=== PATIENT | female | born 1950 | race Caucasian/White ===

== ENCOUNTER 2016-08-04 05:15 | Inpatient (IN) | payer OTHER ==
[~2016-08-04] VITALS: Ht 162.6 cm; Wt 75.7 kg
--- NOTE | ~2016-08-04 | HC ---
[facility] [place] [address] CONSULTATION Name: YOLANDA ZAIDI Room #: 410-[facility]#: [id number] Admission: 08/04/16 Attend Phys: Calvin Lund MD Discharge: Date of : 48 Report #: [id number] THIS REPORT FOR: //name// CC: Calvin Robertohanie Frank DATE OF SERVICE: 08/04/2016 ATTENDING PHYSICIAN: Dr. Lund. CONSULTING PHYSICIAN: Adrian Magallanes MD REASON FOR CONSULTATION: Abdominal pain, nausea, and vomiting. HISTORY OF PRESENT ILLNESS: This is a 66-year-old female patient who was seen in the [facility] after having awakened at around 2 o'clock this morning with abdominal pain, nausea, and vomiting. Shortly after awakening, she passed a regular bowel movement with no change in her symptoms. She notes no temporal relationship to food intake. She denies fever or chills. She has had similar pain in the past intermittently, most recently 9 months ago, although the pain was not as intense. She was to be seen by director retirement; however, she got feeling better and elected not to keep the appointment. The patient's CT scan through the emergency room for this hospitalization has revealed thickening of the hepatic flexure of the colon with gallbladder wall thickening and pericholecystic fluid visualized. Ultrasound was consistent with this as well. The patient had a negative sonographic Drake's sign. Her white count was slightly elevated. PAST MEDICAL HISTORY: Significant for asthma, hypertension, gastroesophageal reflux and seasonal allergies. PAST SURGICAL HISTORY: Includes hysterectomy 18 years ago and nasal polypectomy in the past. HOME MEDICATIONS: Include Advair, lisinopril 20 mg, Zyrtec, and a proton pump inhibitor. ALLERGIES: No known drug allergies. FAMILY HISTORY: Her father had diabetes mellitus. SOCIAL HISTORY: The patient denies any use of tobacco or illicit drugs. She reports she drinks beer weekly. 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 REVIEW OF SYSTEMS: As per history of present illness. In addition, [facility] [address] [place] [address] CONSULTATION Name: DYANYOLANDA K Room #: 410-[facility]#: [id number] Admission: 08/04/16 Attend Phys: Calvin Ludn MD Discharge: Date of : 48 Report #: [id number] GENERAL: The patient denies fever or chills. Denies unintentional weight loss. HEENT: Denies changes in taste, vision, hearing, or smell. RESPIRATORY: Denies shortness of breath, COPD or asthma. CARDIOVASCULAR: Denies chest pain or palpitations. GASTROINTESTINAL: As per history of present illness. Denies bright red blood per rectum. Her most recent colonoscopy was approximately 5-6 years ago for polyps. GENITOURINARY: Denies dysuria, urgency, increased urinary frequency or hematuria. MUSCULOSKELETAL: Denies myalgia, arthralgia or arthritis. NEUROLOGIC: Denies headaches, numbness or tingling. PSYCHIATRIC: Denies depression, anxiety or suicidal ideations. SKIN AND INTEGUMENTARY: Denies new skin lesions, rashes, moles or jaundice. HEMATOLOGIC: Denies easy bleeding, bruising or anemia. All other review of systems is negative. PHYSICAL EXAMINATION: VITAL SIGNS: Temperature 98.7, blood pressure 143/71, pulse 95 and respirations 20. GENERAL: This is a 66-year-old female patient in no acute distress. HEENT: Atraumatic, normocephalic with moist mucosal membranes. Oropharynx is clear. She has no scleral icterus. NECK: Supple, no appreciable lymphadenopathy. Trachea is midline. CHEST: Clear bilaterally. No crackles or wheezes. CARDIOVASCULAR: Regular rate and rhythm, S1, S2. ABDOMEN: Soft, but tender to palpation, greatest in the upper epigastrium. She has no rebound or guarding. No palpable masses, no appreciable hernias. No hepatosplenomegaly. GENITOURINARY: Normal external female genitalia. EXTREMITIES: No clubbing, cyanosis or edema. NEUROLOGIC: Cranial nerves 2-12 grossly intact. PSYCHIATRIC: Normal mood and affect. SKIN AND INTEGUMENTARY: No acute inflammatory changes, rashes or lesions are present, no jaundice. LABORATORY DATA: CBC shows a white blood cell count of 12.5, hemoglobin 13.9, hematocrit 42.3 and platelets 343. Electrolytes showed sodium of 141, potassium 4.0, chloride 105, CO2 of 29, BUN 17, creatinine 1.0 and glucose 134. Her liver function tests were mildly elevated with an AST of 44, normal ALT at 58 and elevated alkaline phosphatase of 175. Total bilirubin was normal at 0.5. Lipase was normal at 120. Urinalysis was entirely negative. RADIOLOGIC STUDIES: Abdominal ultrasound showed a prominent gallbladder; however, no gallstones were seen and the patient had a negative sonographic Drake sign. CT of the abdomen and pelvis findings are as noted above. There [address] [address] CONSULTATION Name: YOLANDA ZAIDI Room #: 410-P [facility]#: [id number] Admission: 08/04/16 Attend Phys: Calvin Lund MD Discharge: Date of : 48 Report #: [id number] was mild edema of the proximal splenic flexure of the colon. CT findings are as noted above. The gallbladder wall showed a slight amount of fluid anterior to the gallbladder. The gallbladder itself was seen adjacent to the hepatic flexure where there was a suggestion of mild edema involving the proximal splenic flexure. This was felt to represent mild developing diverticulitis versus colitis adjacent to the gallbladder resulting in secondary inflammatory changes. IMPRESSION AND PLAN: This is a 66-year-old female patient with a history of hypertension, asthma, and gastroesophageal reflux who has upper epigastric abdominal pain occurring intermittently. The differential diagnosis includes peptic ulcer disease, biliary disease, or colitis/diverticulitis, all of these could be present; however, my suspicion is that she has diverticulitis with secondary inflammation of the gallbladder. That being said, she could also have chronic cholecystitis with similar symptoms approximately 9 months ago. Her leukocytosis may be secondary to the nausea and vomiting that she has experienced. My recommendation is that she taken minimal p.o. until her bowel function is more robust. She should continue on IV fluids, antibiotics, and her diet can be advanced when able. At some point, she will need a followup CT scan and she would benefit from a PIPIDA scan, which could help to both rule out acute cholecystitis and to determine her gallbladder function/EF. We discussed the pathophysiology and natural history of both diverticular disease and biliary disease as well as treatment alternatives and surgical options. The patient expressed understanding of our discussion. Further recommendations will be made pending her clinical course. I will follow along with serial abdominal exams as well as labs and x-rays as necessary. I sincerely appreciate the opportunity to participate in the care of this patient and will leave further recommendations and orders in the electronic medical record as appropriate. <ELECTRONICALLY SIGNED> By: Adrian Magallanes MD, FACS 08/05/16 0843 2041 [id number] Adrian Magallanes MD, FACS /nt
--- NOTE | ~2016-08-04 | EKG ---
[address] [address] ELECTROCARDIOGRAM REPORT Name: YOLANDA ZAIDI Room #: 410-[facility]#: [id number] Admission: 08/04/16 Attend Phys: Calvin Lund MD Discharge: Date of : 48 Report #: [id number] THIS REPORT FOR: //name// [facility] ED Test Date: 2016-08-04 Test Time: 08:15:22 Pat Name: YOLANDA ZAIDI Department: Room: [employer] Gender: F Nurse General Duty: BITA : 1950 Requested By: Eliseo Mayen Order Number: [id number] MD: Bart Muller Measurements Intervals [place] Rate: 59 P: 59 MD: 167 QRS: 9 QRSD: 98 T: 32 QT: 442 QTc: 438 Interpretive Statements Sinus rhythm No previous ECG available for comparison Electronically Signed On 08-04-2016 22:40:49 CDT by Bart Muller [email or web address] <ELECTRONICALLY SIGNED> By: Bart Muller MD 08/04/16 2240 0815 4 Bart Muller MD /WYATT
[2016-08-04 05:16] VITALS: BP 148/90
[2016-08-04 05:35] LABS: URINE BILIRUBIN NEGATIVE (Negative); URINE BLOOD NEGATIVE (Negative); URINE COLOR YELLOW; URINE GLUCOSE-RANDOM* NEGATIVE (Negative); URINE KETONES NEGATIVE (Negative); URINE NITRITE NEGATIVE (Negative); URINE PROTEIN (DIPSTICK) NEGATIVE (Negative); URINE SPECIFIC GRAVITY 1.015 (1.003-1.035); URINE UROBILINOGEN 0.2 E.U./dl (0.2-1.0)
[2016-08-04 05:51] LABS: ABSOLUTE NEUTROPHILS 9.1 thou/uL (1.4-8.2); BASOPHILS 0.5 % (0.0-2.0); EOSINOPHILS 1.5 % (0.0-3.0); HEMATOCRIT 42.3 % (37.0-47.0); HEMOGLOBIN 13.9 gm/dL (12.0-15.0); MANUAL DIFF NO; MCH 29.4 pg (26.0-34.0); MCV 89.2 fL (80.0-100.0); MONOCYTES 8.7 % (1.0-8.0); PLATELET COUNT 343 thou/uL (150-400); POLYS 72.3 % (36.0-66.0); RBC 4.74 mil/uL (4.20-5.00); RDW 13.6 % (10.5-14.5); WBC 12.5 thou/uL (4.0-11.0)
[2016-08-04 05:59] LABS: CALCIUM 8.9 mg/dL (8.5-10.1)
[2016-08-04 06:04] LABS: DIRECT BILIRUBIN 0.1 mg/dL (<0.1-0.3); TOTAL BILIRUBIN 0.5 mg/dL (<0.1-1.0); TOTAL PROTEIN 7.6 g/dL (6.4-8.2)
[2016-08-04] MEDS ORDERED: ALLERCLEAR10 MG PO (07:05)
[2016-08-04] MEDS ORDERED: PRINIVIL20 MG PO (07:05)
[2016-08-04] MEDS ORDERED: ASPIR 8181 MG PO (07:06)
[2016-08-04] MEDS ORDERED: PROBIOTIC1 EAC1 PO (07:06)
[2016-08-04] MEDS ORDERED: OMEPRAZOLE 20 M20 MG PO (07:06)
[2016-08-04] MEDS ORDERED: BIOTIN1 MG PO (07:06)
[2016-08-04] MEDS ORDERED: NASACORT10.8 ML NS (07:07)
[2016-08-04] MEDS ORDERED: ADVAIR HFA 230M12 GM INH (07:07)
[2016-08-04 09:00] VITALS: BP 140/79
[2016-08-04 11:00] VITALS: BP 124/77
[2016-08-04 16:46] VITALS: BP 143/71
[2016-08-04 20:00] VITALS: BP 136/93
[2016-08-05 06:23] LABS: HEMATOCRIT 38.8 % (37.0-47.0); HEMOGLOBIN 13.1 gm/dL (12.0-15.0); MCH 30.3 pg (26.0-34.0); MCHC 33.9 g/dL (28.0-37.0); MCV 89.3 fL (80.0-100.0); RBC 4.34 mil/uL (4.20-5.00); RDW 13.6 % (10.5-14.5); WBC 10.5 thou/uL (4.0-11.0)
[2016-08-05 06:47] LABS: ALBUMIN 3.1 g/dL (3.4-5.0); CALCIUM 8.5 mg/dL (8.5-10.1); POTASSIUM 3.3 mmol/L (3.5-5.1); TOTAL PROTEIN 6.2 g/dL (6.4-8.2)
[2016-08-05 07:31] VITALS: BP 138/73
[2016-08-05 16:07] VITALS: BP 134/68
[2016-08-05 19:35] VITALS: BP 135/70
[2016-08-06 04:44] VITALS: BP 99/63
[2016-08-06 16:00] VITALS: BP 144/80
[2016-08-06 19:50] VITALS: BP 148/76
[2016-08-07 03:26] VITALS: BP 110/51
[2016-08-07 08:00] VITALS: BP 144/84
[2016-08-07 12:46] LABS: HEMATOCRIT 38.5 % (37.0-47.0); HEMOGLOBIN 12.9 gm/dL (12.0-15.0); MCHC 33.5 g/dL (28.0-37.0); MCV 89.4 fL (80.0-100.0); RBC 4.3 mil/uL (4.20-5.00); RDW 13.4 % (10.5-14.5); WBC 8.4 thou/uL (4.0-11.0)
[2016-08-07 12:54] LABS: CALCIUM 8.8 mg/dL (8.5-10.1); CREATININE 0.9 mg/dL (0.6-1.0); POTASSIUM 3.4 mmol/L (3.5-5.1)
[2016-08-07] MEDS ORDERED: AUGMENTIN 875-1 EACH PO (15:50)
[2016-08-07 15:59] VITALS: BP 144/84
== END 2016-08-07 17:04 | disposition home or self-care (01) | DRG 872 ==
LOC: ER 05:15 → 4N 08:17 → EROBS 08:17 → 5S 08:46 → 4N 17:32
PROVIDERS: Emergency Medicine; Internal Medicine; Nurse Practitioner Family
DX: A41.9 Sepsis, unspecified organism (principal); K57.92 Diverticulitis of intestine, part unspecified, without perforation or abscess without bleeding; J45.909 Unspecified asthma, uncomplicated; I10 Essential (primary) hypertension; K21.9 Gastro-esophageal reflux disease without esophagitis; D72.829 Elevated white blood cell count, unspecified; E87.6 Hypokalemia; Z79.899 Other long term (current) drug therapy; Z79.82 Long term (current) use of aspirin; Z83.3 Family history of diabetes mellitus; Z90.710 Acquired absence of both cervix and uterus
CPT/HCPCS: 10091

== ENCOUNTER 2016-09-11 05:53 | Day surgery (SDC) | payer OTHER ==
[~2016-09-11] VITALS: Ht 162.6 cm; Wt 72.6 kg
--- NOTE | ~2016-09-11 | EKG ---
[address] [place] [address] ELECTROCARDIOGRAM REPORT Name: YOLANDA ZAIDI Room #: [facility]#: [id number] Admission: 09/11/16 Attend Phys: Adrian Magallanes MD, F Discharge: 09/11/16 Date of : 48 Report #: [id number] THIS REPORT FOR: //name// [facility] Test Date: 2016-09-11 Test Time: 09:41:57 Pat Name: YOLANDA ZAIDI Department: Room: 150 5 Gender: F Slotter Operator: VINNIE : 1950 Requested By: Adrian Magallanes Order Number: [id number] MD: Alfonso Gillespie Measurements Intervals [place] Rate: 88 P: 66 CO: 155 QRS: 10 QRSD: 92 T: 33 QT: 377 QTc: 457 Interpretive Statements Sinus rhythm No significant abnormality Compared to ECG 08/04/2016 08:15:22 No significant changes Electronically Signed On 09-13-2016 8:05:14 CDT by Alfonso Gillespie [email or web address] <ELECTRONICALLY SIGNED> By: Alfonso Gillespie MD, [facility] 09/13/16 0805 0 Alfonso Gillespie MD, [facility] /EPI
--- NOTE | ~2016-09-11 | O ---
[facility] [place] [address] OPERATIVE REPORT Name: YOLANDA ZAIDI Room #: [facility]#: [id number] Admission: 09/11/16 Attend Phys: Adrian Magallanes MD, F Discharge: 09/11/16 Date of : 48 Report #: [id number] THIS REPORT FOR: //name// CC: Leonela Magallanes DATE OF SERVICE: 09/11/2016 SURGEON: Adrian Magallanes MD INFORMATION TECHNOLOGY CONSULTANT: None. PREOPERATIVE DIAGNOSES: 1. History of acute acalculous cholecystitis. 2. Biliary colic with dyskinesia. POSTOPERATIVE DIAGNOSES: 1. History of acute acalculous cholecystitis, now subacute. 2. Biliary colic with dyskinesia. PROCEDURE: Robotic cholecystectomy. ANESTHESIA: General endotracheal anesthesia and local anesthetic. ESTIMATED BLOOD LOSS: 2 mL. SPECIMEN: Gallbladder. COMPLICATIONS: None appreciated. INDICATIONS FOR PROCEDURE: This is a 66-year-old female patient who was seen in the [facility] emergency room with abdominal pain, nausea, and vomiting in early July 2016. She underwent a CT of the abdomen and pelvis, which revealed thickening of the gallbladder wall and pericholecystic fluid as well as thickening of the hepatic flexure of the colon. The patient's white blood cell count was slightly elevated. She improved with antibiotic therapy. She ultimately underwent a PIPIDA scan, which revealed a 0% gallbladder ejection fraction with no evidence for acute cholecystitis. The patient has had recurrent symptoms most recently 9 months prior to her hospitalization. She elected not to see a senior internet sales consultant as she was feeling better. She denies current postprandial pain, nausea, vomiting, fever, or chills. She presents today for robotic cholecystectomy. OPERATIVE FINDINGS: Upon entrance into the abdominal cavity, the liver, stomach, small-bowel and colon in the surrounding area appeared otherwise normal. The critical view consisting of the cystic artery, cystic duct and [address] [address] OPERATIVE REPORT Name: YOLANDA ZAIDI Room #: DEP [facility]#: [id number] Admission: 09/11/16 Attend Phys: Adrian Magallanes MD, F Discharge: 09/11/16 Date of : 48 Report #: [id number] lower edge of the gallbladder forming a window through, which the liver was visible, was seen prior to clipping both the cystic artery and cystic duct. There were subacute cholecystitis changes as there was fluid in the pericholecystic tissue. No other significant intraabdominal pathology was identified. At the conclusion of the operation, the sponge, needle, and instrument counts were correct. There was no evidence for iatrogenic injury. DESCRIPTION OF PROCEDURE IN DETAIL: After the benefits and risks of the procedure were explained to the patient, which include, but are not limited to risks of bleeding, infection, postoperative pain, and postoperative expectations, informed consent was obtained. The patient was identified in the preoperative holding area. She was given IV antibiotics as documented in the chart in line with the SCIP protocol. The patient was then taken to the operating room and she was placed in the supine position. SCDs were placed on the patient's bilateral lower extremities and pneumatic compression was initiated. The patient was then given IV sedation and she was intubated without incident. The patient's abdomen was then prepped and draped in the standard sterile fashion. A time-out was performed to identify the correct patient and procedure. Local anesthetic was infiltrated into the skin and subcutaneous tissue in the left abdomen where a small transverse incision was made. A 5-mm Visiport was placed intraperitoneally with a 0-degree angled laparoscope. Pneumoperitoneum was achieved with insufflation of carbon dioxide to 15 mmHg. An infraumbilical 12-mm as well as 8-mm ports times 2 in the right lower quadrant were placed under direct visualization after local anesthetic was infiltrated into the skin and subcutaneous tissue and appropriately sized incisions were made. The patient was then placed in the reverse Trendelenburg position. The da Ken robot was then docked to the ports. After appropriately docking of the ports and placing the instruments, I broke scrub to perform the operation on the robotic console. The gallbladder was retracted in the cephalad and lateral direction. The gallbladder peritoneum was scored medially and laterally with the hook cautery. The cystic artery and cystic duct were dissected free and seen as the only two structures entering the gallbladder. The critical view of safety was identified, whereby the cystic artery, cystic duct and lower edge of the gallbladder forming a window through which the liver was visible. The cystic duct was triply clipped and divided sharply, leaving 2 clips on the cystic duct stump; the cystic artery was doubly clipped and divided with the cautery, leaving 2 clips on the cystic artery stump. The gallbladder was then dissected out of the liver bed with the hook cautery. Bleeding points were made hemostatic with electrocautery at the time of removal of the gallbladder. The gallbladder was placed in the right pericolic gutter. The robotic instruments were then removed under direct visualization. The camera was removed and the robot was undocked from the laparoscopic ports. [address] [address] OPERATIVE REPORT Name: YOLANDA ZAIDI Room #: DEP [facility]#: [id number] Admission: 09/11/16 Attend Phys: Adrian Magallanes MD, F Discharge: 09/11/16 Date of : 48 Report #: [id number] The abdominal cavity was then entered with a 5-mm 30-degree angled laparoscope through the right mid abdominal port. The gallbladder was placed in an Endopouch and removed through the 12 mm port site. A cehuni-rl-ltanh 0 PDS suture was then used to close the fascial defect under direct visualization. The liver bed was examined for hemostasis prior to tying the suture. The suture was tied under direct visualization to ensure no incorporation of intraabdominal content. The abdominal cavity was then desufflated and the remaining ports were removed. Interrupted subcuticular 4-0 Monocryl sutures and Dermabond were used to close the skin incisions. The patient tolerated the procedure well. She was awakened, extubated, and taken to recovery room in stable condition with no apparent intraoperative complications. <ELECTRONICALLY SIGNED> By: Adrian Magallanes MD, FACS 09/12/16 0704 1444 1603 Adrian Magallanes MD, FACS /nt
--- NOTE | ~2016-09-11 | S ---
[facility] [place] [address] SURGICAL PATH RPT PROCEDURE Name: KAY ZAIDI Room #: DEP [facility]..#: [id number] Admission: 09/11/16 Date of : 48 Discharge: 09/11/16 Report #: [id number] Path Case #: [id number] PATHOLOGY REPORT COLLECTION DATE: 09/11/2016 RECEIVED DATE: 09/11/2016 SUBMITTING PHYS: Dr. Adrian Magallanes OTHER PHYS: Dr. Leonela Frank SPECIMEN(S) RECEIVED: A.Gallbladder * * * * * * * * * * * * FINAL DIAGNOSIS: Gallbladder, cholecystectomy: - Mild chronic cholecystitis. - Cholesterolosis. PATHOLOGIST: Ellen Matos M.D. REPORT ELECTRONICALLY SIGNED BY: Ellen Matos M.D. DATE/TIME: 09/13/2016 15:32 * * * * * * * * * * * * GROSS PATHOLOGY: Received in formalin labeled "Kay Zaidi gallbladder," is a 6.7 x 2.9 x 1.0 cm, previously opened gallbladder with blue-thomas serosal surfaces. Opening the gallbladder reveals a velvety, bile-stained mucosa with mild, diffuse cholesterolosis, and an average wall thickness of 0.1 cm. Calculi are not present and no masses are noted grossly. Personalized Living Manager sections from the body and fundus are submitted along with the proximal margin in cassette A1. (CAA; 09/12/2016) CLINICAL HISTORY: Cholecystitis INITIAL CPT CODE(S): A; 57864 Professional services performed by [facility] at [facility] [address] [place] [address] Technical services performed by [facility] at [address] [place] [id number]. [facility] [address] [place] [address] SURGICAL PATH RPT PROCEDURE Name: KAY ZAIDI Room #: [place] [facility] [place]#: [id number] Admission: 09/11/16 Date of : 48 Discharge: 09/11/16 Report #: [id number] Path Case #: [id number] [facility] [address] [address] PHONE: [phone] DIRECTOR: Gama Caballero M.D. * * * END OF REPORT * * *
[~2016-09-11 05:53] MED LIST: ACYCLOVIR 200200 MG PO; ADVAIR HFA 230M12 GM INH; ALLERCLEAR10 MG PO; ASPIR 8181 MG PO; AUGMENTIN 875-1 EACH PO; BIOTIN1 MG PO; HAIR, SKIN AND1 EACH PO; NASACORT10.8 ML NS; OMEPRAZOLE 20 M20 MG PO; PRINIVIL20 MG PO; PROBIOTIC1 EAC1 PO
[2016-09-11 09:52] LABS: HEMATOCRIT 41.2 % (37.0-47.0); HEMOGLOBIN 13.9 gm/dL (12.0-15.0); MCH 30.6 pg (26.0-34.0); MCHC 33.8 g/dL (28.0-37.0); MCV 90.6 fL (80.0-100.0); RBC 4.55 mil/uL (4.20-5.00); RDW 13.4 % (10.5-14.5); WBC 8.1 thou/uL (4.0-11.0)
[2016-09-11 10:07] LABS: CALCIUM 9.4 mg/dL (8.5-10.1); CREATININE 0.9 mg/dL (0.6-1.0); POTASSIUM 3.7 mmol/L (3.5-5.1)
[2016-09-11 10:10] LABS: ALBUMIN 3.9 g/dL (3.4-5.0); TOTAL BILIRUBIN 0.6 mg/dL (<0.1-1.0); TOTAL PROTEIN 7.3 g/dL (6.4-8.2)
[2016-09-11 10:23] VITALS: BP 142/76
[2016-09-11 13:03] VITALS: BP 142/76
== END 2016-09-11 13:50 | disposition home or self-care (01) ==
LOC: TBA 05:53 → OR 05:53
PROVIDERS: Surgery
DX: K80.42 Calculus of bile duct with acute cholecystitis without obstruction (principal); K82.8 Other specified diseases of gallbladder; I10 Essential (primary) hypertension; K21.9 Gastro-esophageal reflux disease without esophagitis; J45.909 Unspecified asthma, uncomplicated; Z90.710 Acquired absence of both cervix and uterus; Z98.890 Other specified postprocedural states; Z79.82 Long term (current) use of aspirin; Z79.899 Other long term (current) drug therapy
CPT/HCPCS: 49000; 50010; 50101; 50249; 50411; 50555; 51975; 52265; 54022; 54118; 56525; 56526; 56632; 56641; 57006; 62110; 62900; 70005

== ENCOUNTER 2019-10-25 16:40 | Emergency (ER) | payer OTHER ==
[~2019-10-25] VITALS: Ht 162.6 cm; Wt 77.1 kg
[2019-10-25 16:53] LABS: URINE BILIRUBIN NEGATIVE (Negative); URINE BLOOD 1+ (Negative); URINE CLARITY CLEAR; URINE COLOR YELLOW; URINE GLUCOSE-RANDOM* NEGATIVE (Negative); URINE KETONES TRACE (Negative); URINE LEUKOCYTES-REFLEX NEGATIVE (Negative); URINE NITRITE-REFLEX NEGATIVE (Negative); URINE PROTEIN (DIPSTICK) 1+ (Negative); URINE SPECIFIC GRAVITY 1.025 (1.005-1.035); URINE UROBILINOGEN 0.2 E.U./dl (0.2-1.0)
[2019-10-25 17:05] LABS: BACTERIA-REFLEX 1-9 Few /HPF (None Seen); CASTS None Seen /LPF (None Seen); CRYSTALS None Seen /LPF (None Seen); SQUAMOUS 0-3 Few /LPF (0-3); URINE RBC 3-10 Few /HPF (0-2); URINE WBC-REFLEX None Seen /HPF (0-5)
[2019-10-25 17:39] LABS: ABSOLUTE NEUTROPHILS 13.9 thou/uL (1.4-8.2); BASOPHILS 0.3 % (0.0-2.0); EOSINOPHILS 0.1 % (0.0-3.0); HEMATOCRIT 42.8 % (37.0-47.0); HEMOGLOBIN 14.7 gm/dL (12.0-15.0); LYMPHOCYTES 8.5 % (24.0-44.0); MCH 31.2 pg (26.0-34.0); MCHC 34.4 g/dL (28.0-37.0); MCV 90.7 fL (80.0-100.0); MONOCYTES 7.8 % (1.0-8.0); PLATELET COUNT 319 thou/uL (150-400); POLYS 83.3 % (36.0-66.0); RBC 4.72 mil/uL (4.20-5.00); RDW 13.7 % (10.5-14.5); WBC 16.8 thou/uL (4.0-11.0)
[2019-10-25 17:49] LABS: CALCIUM 9.1 mg/dL (8.5-10.1); POTASSIUM 3.7 mmol/L (3.5-5.1)
[2019-10-25 17:55] LABS: ALBUMIN 3.9 g/dL (3.4-5.0); TOTAL BILIRUBIN 0.7 mg/dL (0.2-1.0); TOTAL PROTEIN 7.4 g/dL (6.4-8.2)
[2019-10-25] MEDS ORDERED: CIPRO500 M1 PO (19:06)
[2019-10-25] MEDS ORDERED: NORCO 5-325 TA1 EAC2 PO (19:06)
[2019-10-25] MEDS ORDERED: ONDANSETRON HCL4 M2 PO (19:06)
[2019-10-25] MEDS ORDERED: FLAGYL500 M1 PO (19:06)
[2019-10-25 19:50] VITALS: BP 180/78
== END 2019-10-25 19:55 | disposition home or self-care (01) ==
LOC: ER 16:40
PROVIDERS: Physician Assistant
DX: K57.32 Diverticulitis of large intestine without perforation or abscess without bleeding (principal); R11.2 Nausea with vomiting, unspecified; I10 Essential (primary) hypertension; K21.9 Gastro-esophageal reflux disease without esophagitis; J45.909 Unspecified asthma, uncomplicated; Z79.899 Other long term (current) drug therapy; Z79.82 Long term (current) use of aspirin